=== PATIENT | female | born 1995 | race African-American/Black ===

== ENCOUNTER 2017-01-24 22:34 | Emergency (ER) | payer OTHER, MEDICAID ==
[~2017-01-24] VITALS: Ht 154.9 cm; Wt 100.0 kg
[~2017-01-24 22:34] MED LIST: ANUCORT-HC25 MG RE; CEPHALEXIN500 MG PO; CIPROFLOXACN500 MG PO; FLEXERIL PO; PRENATA3 PO; ULTRAM50 M1 PO
[2017-01-24 23:40] LABS: HEMATOCRIT 34.8 % (37.0-47.0); IMMATURE GRANULOCYTES 0.3 % (0.0-1.0); MEAN CELL VOLUME 78.4 fL CALC (80.0-100.0); MEAN CORPUSCULAR HGB 24.8 pG CALC (26.0-32.0); MEAN CORPUSCULAR HGB CONC 31.6 g/L CALC (32.0-36.0); NEUT# 3.94 thou/uL (2.00-7.15); RED BLOOD COUNT 4.44 mill/uL (4.20-5.60); RED CELL DISTRI WIDTH 14.7 % (11.5-15.5)
[2017-01-24 23:41] LABS: URINE BILIRUBIN - DIPSTICK NEGATIVE (NEGATIVE); URINE BLOOD DIPSTICK TRACE-LYSED (NEGATIVE); URINE CLARITY CLEAR; URINE COLOR YELLOW; URINE GLUCOSE - DIPSTICK NEGATIVE (NEGATIVE); URINE KETONE NEGATIVE (NEGATIVE); URINE LEUK ESTERASE NEGATIVE (NEGATIVE); URINE NITRITE - DIPSTICK NEGATIVE (Negative); URINE PH 6.5 (4.5-8.0); URINE PROTEIN - DIPSTICK NEGATIVE (NEG-TRACE); URINE SPECIFIC GRAVITY 1.025
[2017-01-24 23:51] LABS: ALBUMIN 4.1 g/dL (3.2-5.0); ALKALINE PHOSPHATASE 77 u/l (38-126); AMYLASE 45 u/l (30-110); ANION GAP 14 (6-22 (CALC)); BILIRUBIN, TOTAL 0.3 mg/dL (0.0-1.4); BUN 13 mg/dL (7-17); BUN/CREATININE RATIO 17 (12-20 (CALC)); CALCIUM 9.5 mg/dL (8.4-10.2); CARBON DIOXIDE 25 mmol/l (22-30); CHLORIDE 104 mmol/l (95-108); CREATININE 0.8 mg/dL (0.5-1.0); GFR > 60 ML/MIN (>=60 (CALC)); GFR FOR AFR.AMER. > 60 ML/MIN (>=60 (CALC)); GLUCOSE 88 mg/dL (65-105); LIPASE 110 u/l (23-300); POTASSIUM 3.8 mmol/l (3.5-5.1); SGOT/AST 14 u/l (14-36); SGPT/ALT 19 u/l (9-52); SODIUM 139 mmol/l (137-146)
[2017-01-25] MEDS ORDERED: PERCOCET 5/325M1 TAB PO (01:06)
[2017-01-25] MEDS ORDERED: ORPHENADRINE C100 M1 PO (01:06)
[2017-01-25 01:28] VITALS: BP 136/72
== END 2017-01-25 01:34 | disposition home or self-care (01) | DRG 392 ==
LOC: ED 22:34
PROVIDERS: Emergency Medicine
DX: R10.9 Unspecified abdominal pain (principal); R50.9 Fever, unspecified

== ENCOUNTER 2017-03-31 08:03 | Emergency (ER) | payer BC, OTHER ==
[~2017-03-31] VITALS: Ht 154.9 cm; Wt 77.0 kg
[~2017-03-31 08:03] MED LIST changes: +ORPHENADRINE C100 M1 PO; +PERCOCET 5/325M1 TAB PO
[2017-03-31] MEDS ORDERED: MOTRIN800 MG PO (08:32)
[2017-03-31] MEDS ORDERED: TESSALON PER100 MG PO (08:32)
[2017-03-31] MEDS ORDERED: AFRIN 12 HOUR0.05 % (08:32)
[2017-03-31 08:48] LABS: INFLUENZA A NONE DETECTED (NONE DETECT); INFLUENZA B NONE DETECTED (NONE DETECT)
[2017-03-31 09:10] VITALS: BP 140/80
== END 2017-03-31 09:10 | disposition home or self-care (01) | DRG 153 ==
LOC: ED 08:03
PROVIDERS: Emergency Medicine
DX: J06.9 Acute upper respiratory infection, unspecified (principal); R09.81 Nasal congestion; R50.9 Fever, unspecified; B34.9 Viral infection, unspecified; R05 Cough; R09.89 Other specified symptoms and signs involving the circulatory and respiratory systems

== ENCOUNTER 2017-04-09 10:36 | Emergency (ER) | payer BC, OTHER ==
[~2017-04-09] VITALS: Ht 154.9 cm; Wt 90.0 kg
[~2017-04-09 10:36] MED LIST changes: +AFRIN 12 HOUR0.05 %; +MOTRIN800 MG PO; +TESSALON PER100 MG PO
[2017-04-09 12:01] VITALS: BP 117/61
== END 2017-04-09 12:01 | disposition home or self-care (01) | DRG 605 ==
LOC: ED 10:36
DX: S70.02XA Contusion of left hip, initial encounter (principal); Z33.1 Pregnant state, incidental; W18.39XA Other fall on same level, initial encounter; Y93.F2 Activity, caregiving, lifting; Y92.128 Other place in nursing home as the place of occurrence of the external cause

== ENCOUNTER 2017-04-13 10:09 | Emergency (ER) | payer BC, OTHER ==
[~2017-04-13] VITALS: Ht 154.9 cm; Wt 90.0 kg
[2017-04-13 11:06] LABS: HEMATOCRIT 36.6 % (37.0-47.0); HEMOGLOBIN 11.6 g/dl (12.0-16.0); IMMATURE GRANULOCYTES 0.4 % (0.0-1.0); MEAN CELL VOLUME 78.7 fL CALC (80.0-100.0); MEAN CORPUSCULAR HGB 24.9 pG CALC (26.0-32.0); MEAN CORPUSCULAR HGB CONC 31.7 g/L CALC (32.0-36.0); NEUT# 3.2 thou/uL (2.00-7.15); RED BLOOD COUNT 4.65 mill/uL (4.20-5.60); RED CELL DISTRI WIDTH 13.6 % (11.5-15.5)
[2017-04-13 11:25] LABS: ALBUMIN 3.9 g/dL (3.2-5.0); ALKALINE PHOSPHATASE 69 u/l (38-126); ANION GAP 13 (6-22 (CALC)); BILIRUBIN, TOTAL 0.5 mg/dL (0.0-1.4); BUN 9 mg/dL (7-17); BUN/CREATININE RATIO 13 (12-20 (CALC)); CALCIUM 9.3 mg/dL (8.4-10.2); CARBON DIOXIDE 23 mmol/l (22-30); CHLORIDE 106 mmol/l (95-108); CREATININE 0.7 mg/dL (0.5-1.0); GFR > 60 ML/MIN (>=60 (CALC)); GFR FOR AFR.AMER. > 60 ML/MIN (>=60 (CALC)); GLUCOSE 90 mg/dL (65-105); POTASSIUM 4.1 mmol/l (3.5-5.1); SGOT/AST 15 u/l (14-36); SGPT/ALT 23 u/l (9-52); SODIUM 139 mmol/l (137-146); TOTAL PROTEIN 7.1 g/dL (6.3-8.2)
[2017-04-13 11:41] LABS: BETA-HCG, QUANT(RESULT NUMBER) < 2 mIU/mL
[2017-04-13] MEDS ORDERED: MOTRIN800 MG PO (11:54)
[2017-04-13 12:34] VITALS: BP 108/65
== END 2017-04-13 12:40 | disposition home or self-care (01) | DRG 761 ==
LOC: ED 10:09
PROVIDERS: Emergency Medicine
DX: N94.6 Dysmenorrhea, unspecified (principal); R11.0 Nausea

== ENCOUNTER 2017-12-04 16:47 | Emergency (ER) | payer OTHER ==
[~2017-12-04] VITALS: Ht 154.9 cm; Wt 77.0 kg
[2017-12-04] MEDS ORDERED: FLEXERIL PO (18:00)
[2017-12-04] MEDS ORDERED: TRAMADOL HYDROC50 MG PO (18:00)
[2017-12-04] MEDS ORDERED: MOTRIN800 MG PO (18:00)
[2017-12-04 18:37] VITALS: BP 130/78
== END 2017-12-04 18:48 | disposition home or self-care (01) | DRG 605 ==
LOC: ED 16:47
DX: S70.11XA Contusion of right thigh, initial encounter (principal); S70.01XA Contusion of right hip, initial encounter; W06.XXXA Fall from bed, initial encounter; Y92.003 Bedroom of unspecified non-institutional (private) residence as the place of occurrence of the external cause

== ENCOUNTER 2017-12-27 21:22 | Emergency (ER) | payer OTHER ==
[~2017-12-27] VITALS: Ht 160 cm; Wt 80.0 kg
[~2017-12-27 21:22] MED LIST changes: +TRAMADOL HYDROC50 MG PO
[2017-12-28] MEDS ORDERED: PERCOCET 5/325M1 TAB PO (00:10)
[2017-12-28 00:21] VITALS: BP 128/71
== END 2017-12-28 00:30 | disposition home or self-care (01) | DRG 563 ==
LOC: ED 21:22
PROC: 2W3JX1Z Immobilization of Right Finger using Splint (ICD-10-PCS; principal; 2017-12-27)
DX: S62.626A Displaced fracture of middle phalanx of right little finger, initial encounter for closed fracture (principal); Y04.2XXA Assault by strike against or bumped into by another person, initial encounter; Y93.89 Activity, other specified; Y92.009 Unspecified place in unspecified non-institutional (private) residence as the place of occurrence of the external cause

== ENCOUNTER 2018-03-12 01:06 | Emergency (ER) | payer OTHER ==
[~2018-03-12] VITALS: Ht 160 cm; Wt 77.1 kg
[2018-03-12] MEDS ORDERED: VOLTAREN - GENE75 MG PO (02:02)
[2018-03-12 02:07] VITALS: BP 119/74
== END 2018-03-12 02:18 | disposition home or self-care (01) | DRG 605 ==
LOC: ED 01:06
DX: S50.02XA Contusion of left elbow, initial encounter (principal); W22.8XXA Striking against or struck by other objects, initial encounter; Y92.003 Bedroom of unspecified non-institutional (private) residence as the place of occurrence of the external cause

== ENCOUNTER 2018-05-18 19:20 | Emergency (ER) | payer OTHER ==
[~2018-05-18] VITALS: Ht 160 cm; Wt 84.0 kg
[~2018-05-18 19:20] MED LIST changes: +VOLTAREN - GENE75 MG PO
[2018-05-18 19:48] LABS: URINE BILIRUBIN - DIPSTICK NEGATIVE (NEGATIVE); URINE BLOOD DIPSTICK TRACE-INTACT (NEGATIVE); URINE COLOR YELLOW; URINE GLUCOSE - DIPSTICK NEGATIVE (NEGATIVE); URINE KETONE NEGATIVE (NEGATIVE); URINE LEUK ESTERASE NEGATIVE (NEGATIVE); URINE NITRITE - DIPSTICK NEGATIVE (Negative); URINE PROTEIN - DIPSTICK NEGATIVE (NEG-TRACE); URINE SPECIFIC GRAVITY >=1.030; URINE UROBILINOGEN - DIPSTICK 0.2 E.U./dL (0.2)
[2018-05-18] MEDS ORDERED: FLEXERIL5 M1 PO (20:21)
[2018-05-18 20:30] VITALS: BP 144/83
== END 2018-05-18 20:30 | disposition home or self-care (01) | DRG 552 ==
LOC: ED 19:20
DX: M54.5 Low back pain (principal); R10.9 Unspecified abdominal pain

== ENCOUNTER 2018-06-02 15:50 | Emergency (ER) | payer OTHER ==
[~2018-06-02] VITALS: Ht 160 cm; Wt 81.8 kg
[~2018-06-02 15:50] MED LIST changes: +FLEXERIL5 M1 PO
[2018-06-02] MEDS ORDERED: PENICILLN VK500 M1 PO (16:06)
[2018-06-02 16:10] VITALS: BP 130/76
== END 2018-06-02 16:10 | disposition home or self-care (01) | DRG 159 ==
LOC: ED 15:50
DX: K08.89 Other specified disorders of teeth and supporting structures (principal); K03.81 Cracked tooth

== ENCOUNTER 2018-07-30 07:50 | Emergency (ER) | payer OTHER ==
[~2018-07-30] VITALS: Ht 160 cm; Wt 90.0 kg
[~2018-07-30 07:50] MED LIST changes: +PENICILLN VK500 M1 PO
[2018-07-30] MEDS ORDERED: ZITHROMAX250 MG PO (08:44)
[2018-07-30 08:47] VITALS: BP 130/70
== END 2018-07-30 08:50 | disposition home or self-care (01) | DRG 153 ==
LOC: ED 07:50
DX: J02.9 Acute pharyngitis, unspecified (principal); J45.909 Unspecified asthma, uncomplicated

== ENCOUNTER 2018-11-21 20:23 | Emergency (ER) | payer OTHER ==
[~2018-11-21] VITALS: Ht 160 cm; Wt 106.6 kg
[~2018-11-21 20:23] MED LIST changes: +ZITHROMAX250 MG PO
[2018-11-21 21:07] LABS: HEMATOCRIT 35.3 % (37.0-47.0); IMMATURE GRANULOCYTES 0.1 % (0.0-5.0); MEAN CELL VOLUME 79.3 fL CALC (80.0-100.0); MEAN CORPUSCULAR HGB 24.7 pG CALC (26.0-32.0); MEAN CORPUSCULAR HGB CONC 31.2 g/L CALC (32.0-36.0); NEUT# 4.06 thou/uL (2.00-7.15); RED BLOOD COUNT 4.45 mill/uL (4.20-5.60); RED CELL DISTRI WIDTH 14.1 % (11.5-15.5)
[2018-11-21 21:16] LABS: URINE BILIRUBIN - DIPSTICK NEGATIVE (NEGATIVE); URINE BLOOD DIPSTICK NEGATIVE (NEGATIVE); URINE COLOR YELLOW; URINE GLUCOSE - DIPSTICK NEGATIVE (NEGATIVE); URINE KETONE NEGATIVE (NEGATIVE); URINE LEUK ESTERASE NEGATIVE (NEGATIVE); URINE NITRITE - DIPSTICK NEGATIVE (Negative); URINE PROTEIN - DIPSTICK NEGATIVE (NEG-TRACE); URINE SPECIFIC GRAVITY 1.015
[2018-11-21 21:23] LABS: COCAINE NEGATIVE (NEGATIVE); METHADONE NEGATIVE (NEGATIVE); TETRAHYDROCANNABIONOL NEGATIVE (NEGATIVE); TRICYLIC ANTIDEPRESSANTS NEGATIVE (NEGATIVE)
[2018-11-21 21:24] LABS: BARBITURATES NEGATIVE (NEGATIVE); OXCYCODONE NEGATIVE (NEGATIVE)
[2018-11-21 21:25] LABS: ALBUMIN 4.2 g/dL (3.2-5.0); ALKALINE PHOSPHATASE 58 u/l (38-126); ANION GAP 14 (6-22 (CALC)); BUN 16 mg/dL (7-17); BUN/CREATININE RATIO 16 (12-20 (CALC)); CARBON DIOXIDE 26 mmol/l (22-30); CHLORIDE 104 mmol/l (95-108); GFR > 60 ML/MIN (>=60 (CALC)); GFR FOR AFR.AMER. > 60 ML/MIN (>=60 (CALC)); POTASSIUM 4.2 mmol/l (3.5-5.1); SGOT/AST 17 u/l (14-36); SODIUM 139 mmol/l (137-146); TOTAL PROTEIN 7.1 g/dL (6.3-8.2)
[2018-11-21 21:31] LABS: BILIRUBIN, TOTAL 0.2 mg/dL (0.0-1.4)
[2018-11-21] MEDS ORDERED: FIORICET PO (22:03)
[2018-11-21 22:23] VITALS: BP 103/52
== END 2018-11-21 22:25 | disposition home or self-care (01) | DRG 103 ==
LOC: ED 20:23
PROVIDERS: Family Medicine
DX: R51 Headache (principal)

== ENCOUNTER 2020-01-31 02:59 | Emergency (ER) | payer OTHER ==
[~2020-01-31 02:59] MED LIST changes: +FIORICET PO
[2020-01-31 06:34] LABS: HEMOGLOBIN 12.2 g/dl (12.0-16.0); IMMATURE GRANULOCYTES 0.4 % (0.0-5.0); MEAN CELL VOLUME 82.1 fL CALC (80.0-100.0); MEAN CORPUSCULAR HGB 25.7 pG CALC (26.0-32.0); MEAN CORPUSCULAR HGB CONC 31.3 g/dL CAL (32.0-36.0); NEUT# 4.81 thou/uL (2.00-7.15); RED BLOOD COUNT 4.75 mill/uL (4.20-5.60); RED CELL DISTRI WIDTH 13.2 % (11.5-15.5)
[2020-01-31 06:35] LABS: ALBUMIN 3.9 g/dL (3.2-5.0); ALKALINE PHOSPHATASE 76 u/l (38-126); ANION GAP 14 (6-22 (CALC)); BILIRUBIN, TOTAL 0.2 mg/dL (0.0-1.4); BUN 12 mg/dL (7-17); BUN/CREATININE RATIO 20 (12-20 (CALC)); CARBON DIOXIDE 21 mmol/l (22-30); CHLORIDE 106 mmol/l (95-108); CREATININE 0.6 mg/dL (0.5-1.0); GFR > 60 ML/MIN (>=60 (CALC)); GFR FOR AFR.AMER. > 60 ML/MIN (>=60 (CALC)); POTASSIUM 4.2 mmol/l (3.5-5.1); SGOT/AST 17 u/l (14-36); SODIUM 137 mmol/l (137-146)
== END 2020-01-31 05:35 | disposition home or self-care (01) | DRG 153 ==
LOC: CANPREER → ED 02:59
PROVIDERS: Emergency Medicine
DX: J02.9 Acute pharyngitis, unspecified (principal); J45.909 Unspecified asthma, uncomplicated; Z20.828 Contact with and (suspected) exposure to other viral communicable diseases

== ENCOUNTER 2020-04-30 15:10 | Emergency (ER) | payer OTHER ==
[~2020-04-30] VITALS: Ht 160 cm; Wt 116.2 kg
[2020-04-30 15:48] LABS: URINE BILIRUBIN - DIPSTICK NEGATIVE (NEGATIVE); URINE BLOOD DIPSTICK NEGATIVE (NEGATIVE); URINE COLOR YELLOW; URINE GLUCOSE - DIPSTICK NEGATIVE (NEGATIVE); URINE KETONE NEGATIVE (NEGATIVE); URINE LEUK ESTERASE NEGATIVE (NEGATIVE); URINE NITRITE - DIPSTICK NEGATIVE (Negative); URINE PROTEIN - DIPSTICK NEGATIVE (NEG-TRACE); URINE UROBILINOGEN - DIPSTICK 0.2 E.U./dL (0.2)
[2020-04-30 16:23] LABS: HEMATOCRIT 38.5 % (37.0-47.0); HEMOGLOBIN 12.4 g/dl (12.0-16.0); IMMATURE GRANULOCYTES 0.2 % (0.0-5.0); MEAN CELL VOLUME 81.4 fL CALC (80.0-100.0); MEAN CORPUSCULAR HGB 26.2 pG CALC (26.0-32.0); MEAN CORPUSCULAR HGB CONC 32.2 g/dL CAL (32.0-36.0); NEUT# 6.01 thou/uL (2.00-7.15); RED BLOOD COUNT 4.73 mill/uL (4.20-5.60); RED CELL DISTRI WIDTH 12.9 % (11.5-15.5)
[2020-04-30 16:33] LABS: ALBUMIN 4.3 g/dL (3.2-5.0); ALKALINE PHOSPHATASE 63 u/l (38-126); ANION GAP 12 (6-22 (CALC)); BILIRUBIN, TOTAL 0.5 mg/dL (0.0-1.4); BUN 7 mg/dL (7-17); BUN/CREATININE RATIO 11 (12-20 (CALC)); CARBON DIOXIDE 24 mmol/l (22-30); CHLORIDE 106 mmol/l (95-108); CREATININE 0.6 mg/dL (0.5-1.0); GFR > 60 ML/MIN (>=60 (CALC)); GFR FOR AFR.AMER. > 60 ML/MIN (>=60 (CALC)); POTASSIUM 3.5 mmol/l (3.5-5.1); SGOT/AST 19 u/l (14-36); SODIUM 138 mmol/l (137-146); TOTAL PROTEIN 7.8 g/dL (6.3-8.2)
[2020-04-30] MEDS ORDERED: PRE-NATAL PO (18:53)
[2020-04-30 19:26] VITALS: BP 134/78
== END 2020-04-30 20:11 | disposition home or self-care (01) | DRG 833 ==
LOC: ED 15:10
PROVIDERS: Family Medicine
DX: O26.899 Other specified pregnancy related conditions, unspecified trimester (principal); R10.31 Right lower quadrant pain; Z3A.00 Weeks of gestation of pregnancy not specified

== ENCOUNTER 2022-08-04 18:55 | Emergency (ER) | payer OTHER ==
[~2022-08-04] VITALS: Ht 160 cm; Wt 120.0 kg
[~2022-08-04 18:55] MED LIST changes: +PRE-NATAL PO
[2022-08-04 21:16] LABS: BASO% 0.2 % (0-3); EOS% 0.2 % (0-8); HEMATOCRIT 40.6 % (37.0-47.0); HEMOGLOBIN 12.9 g/dl (12.0-16.0); IMMATURE GRANULOCYTES 0.2 % (0.0-5.0); LYMPH% 21.3 % (15-41); MEAN CELL VOLUME 84.2 fL CALC (80.0-100.0); MEAN CORPUSCULAR HGB 26.8 pG CALC (26.0-32.0); MEAN CORPUSCULAR HGB CONC 31.8 g/dL CAL (32.0-36.0); NEUT# 9.14 thou/uL (2.00-7.15); NEUT% 71.1 % (42-76); RED BLOOD COUNT 4.82 mill/uL (4.20-5.60); RED CELL DISTRI WIDTH 12.8 % (11.5-15.5)
[2022-08-04 22:55] VITALS: BP 114/71
== END 2022-08-04 22:55 | disposition home or self-care (01) | DRG 153 ==
LOC: ED 18:55
PROVIDERS: Family Medicine
DX: J02.0 Streptococcal pharyngitis (principal); Z20.822 Contact with and (suspected) exposure to COVID-19
CPT/HCPCS: J0561

== ENCOUNTER 2022-09-12 15:48 | Emergency (ER) | payer OTHER ==
[~2022-09-12] VITALS: Ht 160 cm; Wt 99.0 kg
[2022-09-12] VITALS (9 sets, daily range): BP systolic 93–120; BP diastolic 53–69
[2022-09-12 16:50] LABS: BASO% 0.4 % (0-3); EOS% 0.7 % (0-8); HEMATOCRIT 40.1 % (37.0-47.0); HEMOGLOBIN 12.6 g/dl (12.0-16.0); IMMATURE GRANULOCYTES 0.1 % (0.0-5.0); LYMPH% 36.2 % (15-41); MEAN CORPUSCULAR HGB 26.7 pG CALC (26.0-32.0); MEAN CORPUSCULAR HGB CONC 31.4 g/dL CAL (32.0-36.0); MONO% 6.9 % (2-13); NEUT# 3.87 thou/uL (2.00-7.15); NEUT% 55.7 % (42-76); RED BLOOD COUNT 4.72 mill/uL (4.20-5.60); RED CELL DISTRI WIDTH 12.7 % (11.5-15.5)
[2022-09-12 16:55] LABS: ALBUMIN 4.2 g/dL (3.2-5.0); ALKALINE PHOSPHATASE 69 u/l (38-126); ANION GAP 11 (6-22 (CALC)); BUN 8 mg/dL (7-17); BUN/CREATININE RATIO 12 (12-20 (CALC)); CARBON DIOXIDE 27 mmol/l (22-30); CHLORIDE 105 mmol/l (95-108); CREATININE 0.7 mg/dL (0.5-1.0); GFR FOR AFR.AMER. > 60 ML/MIN (>=60 (CALC)); GFR OTHER RACES > 60 ML/MIN (>=60 (CALC)); POTASSIUM 3.7 mmol/l (3.5-5.1); SGOT/AST 19 u/l (14-36); SODIUM 138 mmol/l (137-146); TOTAL PROTEIN 7.3 g/dL (6.3-8.2)
[2022-09-12 18:55] LABS: URINE BILIRUBIN - DIPSTICK NEGATIVE (NEGATIVE); URINE BLOOD DIPSTICK NEGATIVE (NEGATIVE); URINE COLOR YELLOW; URINE GLUCOSE - DIPSTICK NEGATIVE (NEGATIVE); URINE KETONE NEGATIVE (NEGATIVE); URINE LEUK ESTERASE NEGATIVE (NEGATIVE); URINE PROTEIN - DIPSTICK NEGATIVE (NEG-TRACE); URINE SPECIFIC GRAVITY 1.015
[2022-09-12 18:56] LABS: URINE NITRITE - DIPSTICK NEGATIVE (Negative)
[2022-09-12] MEDS ORDERED: XANAX0.25 MG PO (20:19)
== END 2022-09-12 20:35 | disposition home or self-care (01) | DRG 313 ==
LOC: ED 15:48
PROVIDERS: Nurse Practitioner
DX: R07.89 Other chest pain (principal); F41.9 Anxiety disorder, unspecified; J45.909 Unspecified asthma, uncomplicated; Z20.822 Contact with and (suspected) exposure to COVID-19

== ENCOUNTER 2023-06-11 10:21 | Observation (INO) | payer OTHER, MEDICAID ==
[2023-06-11] VITALS (9 sets, daily range): BP systolic 108–121; BP diastolic 65–75
[~2023-06-11] VITALS: Ht 160 cm; Wt 122.8 kg
[~2023-06-11 10:21] MED LIST changes: +AMOX/K CLAV875 M1 PO; +XANAX0.25 MG PO
[2023-06-12] VITALS (7 sets, daily range): BP systolic 94–109; BP diastolic 43–55
[2023-06-12 06:48] LABS: BASO% 0.1 % (0-3); HEMATOCRIT 39.1 % (37.0-47.0); HEMOGLOBIN 12.8 g/dl (12.0-16.0); IMMATURE GRANULOCYTES 0.3 % (0.0-5.0); LYMPH% 9.1 % (15-41); MEAN CELL VOLUME 83.4 fL CALC (80.0-100.0); MEAN CORPUSCULAR HGB 27.3 pG CALC (26.0-32.0); MEAN CORPUSCULAR HGB CONC 32.7 g/dL CAL (32.0-36.0); MONO% 4.1 % (2-13); NEUT# 13.12 thou/uL (2.00-7.15); NEUT% 86.4 % (42-76); RED BLOOD COUNT 4.69 mill/uL (4.20-5.60); RED CELL DISTRI WIDTH 12.5 % (11.5-15.5)
[2023-06-13 03:53] VITALS: BP 110/69
[2023-06-13 04:43] LABS: BASO% 0.1 % (0-3); HEMATOCRIT 34.4 % (37.0-47.0); IMMATURE GRANULOCYTES 0.4 % (0.0-5.0); LYMPH% 25.1 % (15-41); MEAN CELL VOLUME 85.4 fL CALC (80.0-100.0); MEAN CORPUSCULAR HGB 27.3 pG CALC (26.0-32.0); MONO% 4.6 % (2-13); NEUT# 7.5 thou/uL (2.00-7.15); NEUT% 69.8 % (42-76); RED BLOOD COUNT 4.03 mill/uL (4.20-5.60); RED CELL DISTRI WIDTH 12.9 % (11.5-15.5)
[2023-06-13 07:41] VITALS: BP 113/62
[2023-06-13] MEDS ORDERED: PERCOCET 5/325M1 TAB PO ×2 (10:07→10:29)
== END 2023-06-13 15:13 | disposition home health service (06) | DRG 346 ==
LOC: MS2 10:21
PROVIDERS: ADMIT Surgery; ATTEND Surgery
PROC: 0D9P0ZZ Drainage of Rectum, Open Approach (ICD-10-PCS; principal; 2023-06-11)
DX: K61.1 Rectal abscess (principal); Z20.822 Contact with and (suspected) exposure to COVID-19
CPT/HCPCS: C9290; G0379; J0131; J1100

== ENCOUNTER 2023-12-07 19:30 | Emergency (ER) | payer OTHER ==
[~2023-12-07] VITALS: Ht 160 cm; Wt 114.0 kg
[~2023-12-07 19:30] MED LIST changes: +EPIPEN 2-P0.3 MG/0.3 IM; +ISONIAZID100 MG PO; +ORPHENADRINE100 MG PO; +PRIFTIN150 MG PO; +SB ALLERGY10 MG PO; +TORADOL PO
[2023-12-07 21:12] VITALS: BP 123/91
== END 2023-12-07 21:12 | disposition home or self-care (01) | DRG 153 ==
LOC: ED 19:30
DX: J02.9 Acute pharyngitis, unspecified (principal); Z20.822 Contact with and (suspected) exposure to COVID-19